=== PATIENT | male | born 1980 | race Caucasian/White ===

== ENCOUNTER 2017-10-29 19:43 | Emergency (ER) | payer MEDICAID, MEDICARE ==
[~2017-10-29] VITALS: Ht 177.8 cm; Wt 105.0 kg
[~2017-10-29 19:43] MED LIST: CITA40 PO; HALO10 PO
[2017-10-29] MEDS ORDERED: IOHEXOL 350 MG/ML 10 ML VIAL (for RAD DIAG) IVCONTRAST ONE (19:44)
[2017-10-29 19:58] VITALS: BP 122/68; PULSE 71; RESP 18; TEMP 97.5; O2SAT 100
[2017-10-29] MEDS ORDERED: ASPIRIN 81 MG CHEW TAB PO ONE (20:15)
[2017-10-29] MEDS ORDERED: SODIUM CHLORIDE 0.9% FLUSH 10 ML FLUSH IVF PRN (20:15)
[2017-10-29] MEDS ORDERED: MORPHINE SULFATE 4 MG/ML INJ IV PUSH ONE (20:15)
[2017-10-29] MEDS ORDERED: ONDANSETRON ODT 4 MG TAB PO ONE (20:15)
--- NOTE | 2017-10-29 20:17 | PD ---
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 Rated at 10 out of 10 at the time, and it started while he was just sitting resting. Per the family member they took off immediately to the emergency department and that was approximately 15 minutes ago. Patient denies any alleviating or aggravating factors. Patient denies any associated factors such as fever, diaphoresis, headache, visual changes, back pain, abdominal pain, flank pain, sore throat, runny nose, cough. Dates allergy to penicillin however unsure as to what the reaction was since he happening his childhood No primary care physician Patient denies any past medical history except for anxiety and depression Patient denies any significant past surgical history PFSH Past Medical History Anxiety: Yes Cancer: No Cardiovascular Problems: No Diabetes: No Diminished Hearing: No Psychiatric: Yes Tetanus Vaccination: Unknown Past Surgical History Surgical History: No Previous Surgery Social History Alcohol Use: No Tobacco Use: Yes Substance Use: No Allergies-Medications (Allergen,Severity, Reaction): Coded Allergies: penicillin G (Unverified Allergy, Unknown, 10/29/17) Per pt. Reported Meds & Prescriptions Reported Meds & Active Scripts Active Celexa 40 Mg Tab (Citalopram Hydrobromide) 40 Mg Tab 40 Mg PO DAILY 14 Days Reported Haldol (Haloperidol) 10 Mg Tab 10 Mg PO BID Review of Systems General / Constitutional: No: Fever Eyes: No: Visual changes HENT: No: Headaches Cardiovascular: Positive: Chest Pain or Discomfort Respiratory: No: Shortness of Breath Gastrointestinal: No: Abdominal Pain Genitourinary: No: Dysuria Musculoskeletal: No: Pain Skin: No Rash Neurologic: No: Weakness Psychiatric: No: Depression Endocrine: No: Polydipsia Hematologic/Lymphatic: No: Easy Bruising Physical Exam Narrative GENERAL: Well-nourished, well-developed patient in no apparent distress. SKIN: Warm and dry. HEAD: Atraumatic. Normocephalic. EYES: Pupils equal and round. No scleral icterus. No injection or drainage. ENT: No nasal bleeding or discharge. Mucous membranes pink and moist. NECK: Trachea midline. No JVD. CARDIOVASCULAR: Regular rate and rhythm. no rubs or gallops RESPIRATORY: No accessory muscle use. Clear to auscultation. Breath sounds equal bilaterally. GASTROINTESTINAL: Abdomen soft, non-tender, nondistended. No rebound or guarding MUSCULOSKELETAL: Extremities without clubbing, cyanosis, or edema. No obvious deformities. NEUROLOGICAL: Awake and alert. No obvious cranial nerve deficits. Motor grossly within normal limits. Five out of 5 muscle strength in the arms and legs. Normal speech. PSYCHIATRIC: Appropriate mood and affect; insight and judgment normal. Data Data Last Documented VS Vital Signs Date Time Temp Pulse Resp B/P (MAP) Pulse Ox O2 Delivery O2 Flow Rate FiO2 10/29/17 20:26 98 Nasal Cannula 2.00 10/29/17 20:26 17 10/29/17 19:58 97.5 71 122/68 (86) Orders Orders Electrocardiogram (10/29/17 20:04) B-Type Natriuretic Peptide (10/29/17 20:04) Ckmb (Isoenzyme) Profile (10/29/17 20:04) Complete Blood Count With Diff (10/29/17 20:04) Comprehensive Metabolic Panel (10/29/17 20:04) Prothrombin Time / Inr (Pt) (10/29/17 20:04) Act Partial Throm Time (Ptt) (10/29/17 20:04) Troponin I (10/29/17 20:04) Lipase (10/29/17 20:04) Chest, Single Ap (10/29/17 20:04) Ecg Monitoring (10/29/17 20:04) Bilateral Bp Monitoring (10/29/17 20:04) Iv Access Insert/Monitor (10/29/17 20:04) Oximetry (10/29/17 20:04) Oxygen Administration (10/29/17 20:04) Sodium Chloride 0.9% Flush (Ns Flush) (10/29/17 20:15) Ct Pulmonary Angiogram (10/29/17 20:04) Aspirin Chew (Aspirin Chew) (10/29/17 20:15) Morphine Inj (Morphine Inj) (10/29/17 20:15) Ondansetron Odt (Zofran Odt) (10/29/17 20:15) Drug Screen, Random Urine (10/29/17 20:17) Alcohol (Ethanol) (10/29/17 20:17) Salicylates (Aspirin) (10/29/17 20:17) Tylenol (Acetaminophen) (10/29/17 20:17) CKMB (10/29/17 20:05) CKMB% (10/29/17 20:05) Iohexol 350 Inj (Omnipaque 350 Inj) (10/29/17 19:44) Labs Laboratory Tests Test 10/29/17 20:05 White Blood Count 7.8 TH/MM3 Red Blood Count 5.02 MIL/MM3 Hemoglobin 15.0 GM/DL Hematocrit 43.4 % Mean Corpuscular Volume 86.4 FL Mean Corpuscular Hemoglobin 30.0 PG Mean Corpuscular Hemoglobin Concent 34.7 % Red Cell Distribution Width 14.4 % Platelet Count 260 TH/MM3 Mean Platelet Volume 7.2 FL Neutrophils (%) (Auto) 57.4 % Lymphocytes (%) (Auto) 31.4 % Monocytes (%) (Auto) 7.8 % Eosinophils (%) (Auto) 2.6 % Basophils (%) (Auto) 0.8 % Neutrophils # (Auto) 4.5 TH/MM3 Lymphocytes # (Auto) 2.4 TH/MM3 Monocytes # (Auto) 0.6 TH/MM3 Eosinophils # (Auto) 0.2 TH/MM3 Basophils # (Auto) 0.1 TH/MM3 CBC Comment DIFF FINAL Differential Comment Blood Urea Nitrogen 12 MG/DL Creatinine 1.35 MG/DL Random Glucose 77 MG/DL Total Protein 8.1 GM/DL Albumin 4.0 GM/DL Calcium Level 9.2 MG/DL Alkaline Phosphatase 105 U/L Aspartate Amino Transf (AST/SGOT) 32 U/L Alanine Aminotransferase (ALT/SGPT) 41 U/L Total Bilirubin 0.2 MG/DL Sodium Level 139 MEQ/L Potassium Level 3.8 MEQ/L Chloride Level 104 MEQ/L Carbon Dioxide Level 27.5 MEQ/L Anion Gap 8 MEQ/L Estimat Glomerular Filtration Rate 59 ML/MIN Total Creatine Kinase 257 U/L Creatine Kinase MB 1.9 NG/ML Troponin I LESS THAN 0.02 NG/ML B-Type Natriuretic Peptide 9 PG/ML Lipase 148 U/L MDM Medical Decision Making Medical Screen Exam Complete: Yes Emergency Medical Condition: Yes Medical Record Reviewed: Yes Interpretation(s) EKG shows normal sinus rhythm, 66 bpm, normal intervals, no evidence of any ST elevation [place] pattern. Pulse ox on room air with excellent pleth wave, rates between 98-100% which is normal Differential Diagnosis STEMI versus pneumothorax versus pneumonia versus pulmonary embolus versus pericardial effusion Narrative Course CBC shows no leukocytosis, no anemia, normal platelet count, and no left shift. Chemistry shows normal electrolytes, normal liver and normal pancreatic enzymes. First set of cardiac enzymes negative beta natruretic peptide normal at 9. Mildly elevated creatinine of 1.35 with relatively low GFR of 59 especially based on the patient's age. However this may be secondary to dehydration Chest x-ray read by radiologist as no acute abnormality CT scan of the chest read by radiologist as no evidence of pulmonary embolism, or pleural effusion or pericardial effusion. It did however show a prominent left thyroid gland as well as an 8 mm nodule at the right lung base Of note the patient has a stress test performed in [address] 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 With such information which the patient did not reveal to me, patient is a very low risk and can have the remaining of workup for cardiac risk stratification performed as an outpatient. Patient is symptom-free presently. Patient will be discharged Diagnosis Primary Impression: Chest pain Admitting Information Admitting Physician Requests: Observation Patient Instructions: Chest Pain (ED), General Instructions Disposition: 01 DISCHARGE HOME Condition: Stable Alberto Lucio MD Oct 29, 2017 20:17
[2017-10-29 20:21] LABS: AUTOMATED NEUTROPHIL # 4.5 TH/MM3 (1.8-7.7); BASOPHIL # 0.1 TH/MM3 (0-0.2); BASOPHIL % 0.8 % (0.0-2.0); EOSINOPHIL # 0.2 TH/MM3 (0-0.4); EOSINOPHIL % 2.6 % (0.0-4.0); HEMATOCRIT 43.4 % (39.0-51.0); LYMPH % 31.4 % (9.0-44.0); LYMPHOCYTE # 2.4 TH/MM3 (1.0-4.8); MEAN CELL VOLUME 86.4 FL (80.0-100.0); MEAN CORPUSCULAR HGB CONC 34.7 % (32.0-36.0); MEAN PLATELET VOLUME 7.2 FL (7.0-11.0); MONO % 7.8 % (0.0-8.0); MONOCYTE # 0.6 TH/MM3 (0-0.9); NEUT % 57.4 % (16.0-70.0); PLATELET COUNT 260 TH/MM3 (150-450); RED BLOOD COUNT 5.02 MIL/MM3 (4.50-5.90); RED CELL DISTRIBUTION WIDTH 14.4 % (11.6-17.2); WHITE BLOOD COUNT 7.8 TH/MM3 (4.0-11.0)
--- NOTE | 2017-10-29 20:23 | RADRPT ---
EXAM DATE/TIME: 10/29/2017 20:11 [facility] COMPARISON: CHEST SINGLE AP, November 06, 2015, 7:19. INDICATIONS : Chest pain MEDICAL HISTORY : None. SURGICAL HISTORY : None. ENCOUNTER: Initial ACUITY: 1 day PAIN SCORE: 3/10 LOCATION: chest FINDINGS: A single view of the chest demonstrates the lungs to be symmetrically aerated without evidence of mas s, infiltrate or effusion. The cardiomediastinal contours are unremarkable. Osseous structures are intact. CONCLUSION: 1. No acute cardiopulmonary disease. Saul London MD on October 29, 2017 at 20:20 Board Certified Radiologist. This report was verified electronically.
[2017-10-29 20:26] VITALS: RESP 17
[2017-10-29 20:34] LABS: PROTHROMBIN TIME - PATIENT 10.6 SEC (9.8-11.6)
[2017-10-29 20:42] LABS: ALT (GPT) 41 U/L (12-78); AST (GOT) 32 U/L (15-37); BICARBONATE 27.5 MEQ/L (21.0-32.0); BLOOD UREA NITROGEN 12 MG/DL (7-18); CALCIUM 9.2 MG/DL (8.5-10.1); CHLORIDE 104 MEQ/L (98-107); CREATININE 1.35 MG/DL (0.60-1.30); GLOMERULAR FILTRATION RATE 59 ML/MIN (>89); GLUCOSE,RANDOM 77 MG/DL (74-106); SODIUM (NA) 139 MEQ/L (136-145)
[2017-10-29 20:47] LABS: ALKALINE PHOSPHATASE 105 U/L (45-117); TOTAL BILIRUBIN ADULT 0.2 MG/DL (0.2-1.0); TOTAL PROTEIN 8.1 GM/DL (6.4-8.2); TROPONIN I LESS THAN 0.02 NG/ML (0.02-0.05)
--- NOTE | 2017-10-29 21:06 | RADRPT ---
EXAM DATE/TIME: 10/29/2017 20:46 [facility] COMPARISON: No previous studies available for comparison. INDICATIONS : Chest pain. IV CONTRAST: 75 cc Omnipaque 350 (iohexol) IV RADIATION DOSE: 10.64 CTDIvol (mGy) MEDICAL HISTORY : None SURGICAL HISTORY : None. ENCOUNTER: Initial ACUITY: 1 day PAIN SCALE: 8/10 LOCATION: chest TECHNIQUE: Volumetric scanning of the chest was performed using a pulmonary embolism protocol MIP images were re constructed. Using automated exposure control and adjustment of the mA and/or kV according to patien t size, radiation dose was kept as low as reasonably achievable to obtain optimal diagnostic quality images. DICOM format image data is available electronically for review and comparison. Follow-up recommendations for detected pulmonary nodules are based at a minimum on nodule size and pa tient risk factors according to Fleischner Society Guidelines. FINDINGS: PULMONARY ARTERIES: No filling defects are seen in the pulmonary arteries through the segmental level. LUNGS: There is an 8mm solid nodule in the right lung base. Mild groundglass opacities at the lung bases radha aterally likely reflecting volume loss. PLEURAE: There is no pleural thickening or pleural effusion. MEDIASTINUM: There is good visualization of the great vessels of the middle mediastinum. No evidence of mediastin al or hilar adenopathy/mass. MUSCULOSKELETAL: Within normal limits for patient age. MISCELLANEOUS: Left thyroid lobe is prominent. The visualized upper abdominal organs demonstrate no acute abnormalit y. CONCLUSIO No CT evidence for pulmonary artery embolism as questioned. 8 mm nodule at the right lung base. Consider followup CT examination in 6-12 months to evaluate for s tability per 2017 Fleischner criteria. Prominent left thyroid gland. Saul London MD on October 29, 2017 at 20:59 Board Certified Radiologist. This report was verified electronically.
[2017-10-29] MEDS ORDERED: NAPR375T4 PO (21:41)
[2017-10-29] MEDS ORDERED: BACL20TA PO (21:41)
[2017-10-30 00:18] LABS: ACETAMINOPHEN LESS THAN 2.0 MCG/ML (10.0-30.0)
--- NOTE | 2017-10-30 21:11 | EKG ---
Date Performed: 10/29/2017 Time Performed: 20:07:52 PTAGE: 36 years EKG: Sinus rhythm NORMAL ECG PREVIOUS TRACING : 11/06/2015 11.15 Since the previous tracing, no significant change noted DOCTOR: Michael Capone Interpretating Date/Time 10/30/2017 21:10:35
== END 2017-10-29 21:47 | disposition home or self-care (01) ==
LOC: NEPE 19:43
DX: R07.9 Chest pain, unspecified (principal); F41.9 Anxiety disorder, unspecified; Z79.899 Other long term (current) drug therapy; Z88.0 Allergy status to penicillin; Z72.0 Tobacco use
CPT/HCPCS: 71045; 71275; 80053; 80307; 82550; 82552; 83690; 83880; 84484; 85025; 85610; 85730; 93005; 96374; 99285; J2270; Q9967